=== PATIENT | female | born 1980 | race Two or more races ===

== ENCOUNTER 2022-09-24 17:37 | Emergency (ER) | payer SELFPAY ==
[~2022-09-24] VITALS: Ht 157.5 cm; Wt 80.2 kg
[~2022-09-24 17:37] MED LIST: CLIN300C8 PO
[2022-09-24 17:49] VITALS: BP 146/99
== END 2022-09-24 23:02 | disposition home or self-care (01) ==
LOC: ER 17:37
DX: S61.213D Laceration without foreign body of left middle finger without damage to nail, subsequent encounter (principal); Z88.5 Allergy status to narcotic agent; Z88.6 Allergy status to analgesic agent; Z88.8 Allergy status to other drugs, medicaments and biological substances; Z90.89 Acquired absence of other organs; X58.XXXD Exposure to other specified factors, subsequent encounter